=== PATIENT | female | born 1950 | race Caucasian/White ===

== ENCOUNTER 2018-06-30 10:26 | Emergency (ER) | payer OTHER, SELFPAY ==
[2018-06-30 10:36] VITALS: BP 165/78; PULSE 80; RESP 18; TEMP 36.7; O2SAT 100
--- NOTE | 2018-06-30 10:49 | PC.NURSE ---
pt states that her contact lens ripped in half when she was attempting to get it out of her eye. pt has eye redness and irritation.
--- NOTE | 2018-06-30 10:54 | ED.EYEPROB ---
HPI - Eye Problem General Chief complaint: Eye Problems Stated complaint: Torn portion of contact still in eye Time Seen by Provider: 06/30/18 10:45 Source: patient Mode of arrival: ambulatory Limitations: no limitations History of Present Illness HPI Narrative: Patient is a 68-year-old female presenting with right eye pain. She feels like her contact his stuck in her head. She used contacts yesterday only half of it came out last night she slept with his but it was painful and uncomfortable. Today she has been staying with that she still feels like something is in her eye. chief complaint: eye pain and eye redness Related Data Previous Rx's Medication Instructions Recorded ofloxacin 2 drop EYE-RIGHT Q4HRWA #10 ml 06/30/18 Allergies Allergy/AdvReac Type Severity Reaction Status Date / Time ibuprofen [IBUPROFEN] Allergy Mild HIVES Verified 06/30/18 11:17 Review of Systems Review of Systems ROS Unobtainable: All systems reviewed & are unremarkable except as noted in HPI and below Constitutional Denies chills, Denies fever(s), Denies lethargy and Denies weakness Eyes Reports as per HPI Cardiovascular Denies chest pain, Denies irregular heart rhythm, Denies lightheadedness, Denies palpitations, Denies dyspnea, Denies dyspnea on exertion and Denies orthopnea Respiratory Denies cough, Denies dyspnea, Denies dyspnea on exertion and Denies wheezing Musculoskeletal Denies back pain, Denies muscle weakness, Denies numbness and Denies tingling Integumentary/Breasts Denies pruritus, Denies erythema, Denies rash and Denies wounds Neurologic Denies numbness, Denies tingling and Denies weakness Endocrine Denies palpitations Allergic/Immunologic Denies wheezing [facility] Medical History Patient denies significant medical history (Acute) Social History Smoking Status: Never smoker substance use type: does not use Social History Smoking Status: Never smoker substance use type: does not use Exam Initial Vital Signs Initial Vital Signs: Vital Signs Temperature 98.1 F 06/30/18 10:36 Pulse Rate 80 06/30/18 10:36 Respiratory Rate 18 06/30/18 10:36 Blood Pressure 165/78 H 06/30/18 10:36 Pulse Oximetry 100 06/30/18 10:36 GENERAL: Well-appearing, well-nourished and in no acute distress. CARDIOVASCULAR: peripheral pulses in tact, cap refill <2 sec RESPIRATORY: No respiratory distress, speaks in full sentences without difficulty EXTREMITIES: Normal range of motion, no clubbing or edema. Neurovascularly intact NEUROLOGICAL: Cranial nerves II through XII grossly intact. Normal gait and speech. SKIN: Warm, dry, no petechiae, no rashes or lesions. Eyes Eyelids: eyelids normal Conjunctivae: conjunctival abnormality right conjunctival injection Sclera: sclerae normal Cornea: fluorescein used (No foreign body no dye uptake) Pupils: PERRL EOM: EOM intact bilaterally Course Orders Ordered: Discontinued Medications Proparacaine HCl (Parcaine 0.5% Ophth Unique) 1 drops EYE-RIGHT NOW ONE Stop: 06/30/18 11:01 Last Admin: 06/30/18 11:01 Dose: 1 drop Vital Signs - 8 hr 06/30/18 10:36 06/30/18 11:21 Temperature 98.1 F Pulse Rate 80 64 Respiratory Rate 18 16 Blood Pressure 165/78 H Blood Pressure [Right Arm] 155/77 H Pulse Oximetry 100 99 MDM - Eye Problem MDM Narrative Medical decision making narrative: Was irrigated and rinsed no foreign body no dye uptake. Treated empirically with antibiotics. Discharge Plan Departure Patient Disposition: Home Clinical Impression: Acute pain in right eye Discharge Date/Time: 06/30/18 11:23 Interventions: ED Discharge Assessment Last Done: 06/30/18 11:23 Instructions: DI for Eye Contusion Activity Restrictions/Additional Instructions: *You have been diagnosed with right eye irritation *What to do: At this time no contact or foreign body or abrasion is seen in the right eye. You will be antibiotic drops prophylactically DO NOT WEAR CONTACTS UNTIL EYE IS COMPLETELY HEALED *Continue to take medications as directed O'clock cyst and eyedrops 1-2 drops every 4 hr while awake for 2 days then 1-2 drops 4 times a day for 5 days *Follow up with your primary care provider in 2-3 days *Return to ER if you should have increasing a been a decreased vision, or any new, worsening or concerning symptoms Prescriptions: New ofloxacin 0.3 % drops 2 drop EYE-RIGHT Q4HRWA Qty: 10 RF: 0 Referrals: Amber Calderon PA-C [Primary Care Provider] -
[2018-06-30] MEDS: PROPARACAINE 0.5% OPHTH SOL 1 DROPS EYE-RIGHT (11:01)
[2018-06-30 11:21] VITALS: BP 155/77; PULSE 64; RESP 16; O2SAT 99
== END 2018-06-30 11:23 | disposition home or self-care (01) ==
PROVIDERS: Emergency Provider Emergency Medicine; Family Provider Physician Assistant; PCP Physician Assistant
DX: H57.11 Ocular pain, right eye (principal)
CPT/HCPCS: 99282; 99283

== ENCOUNTER → 2018-08-04 10:07 | Outpatient (CLI) | payer OTHER, SELFPAY ==
--- NOTE | 2018-08-04 | DI.MG.S_ITS ---
BILATERAL DIGITAL SCREENING MAMMOGRAM 3D/2D WITH CAD: 08/04/2018 CLINICAL: Routine screening. Comparison is made to exams dated: 06/25/2017 mammogram, 04/27/2016 mammogram, and 04/26/2015 mammogram - [facility]. The tissue of both breasts is heterogeneously dense. This may lower the sensitivity of mammography. Current study was also evaluated with a Computer Aided Detection (CAD) system. There is a mole marker on the right breast. There are mole markers on the left breast. No significant masses, calcifications, or other findings are seen in either breast. There has been no significant interval change. IMPRESSION: NEGATIVE There is no mammographic evidence of malignancy. A 1 year screening mammogram is recommended. This exam was interpreted at Station ID: [id number]. NOTE: For mammograms, a report in lay terms will be sent to the patient. Approximately 15% of breast malignancies will not be visualized mammographically. In the management of a palpable breast mass, a negative mammogram must not discourage biopsy of a clinically suspicious lesion. Electronically Signed By: Zoltan schreiber/ling:08/04/2018 19:05:44 letter sent: Normal Exam ACR BI-RADS Category 1: Negative [id number]
== END ==
PROVIDERS: Family Provider Physician Assistant; PCP Physician Assistant; Visit Provider Physician Assistant
DX: Z12.31 Encounter for screening mammogram for malignant neoplasm of breast (principal)
CPT/HCPCS: 77063; 77067

== ENCOUNTER 2018-09-21 14:13 | Outpatient (RCR) | payer OTHER, SELFPAY ==
--- NOTE | 2018-09-21 14:30 | PT.OIE ---
Current Diagnoses Pain in left wrist (09/21/18) Past Medical History (Last Updated 06/30/18 @ 10:56 by Gisel Rowe DO) Patient denies significant medical history (Acute) Provider Visit Care Team Role Provider Type Amber Calderon PA-C Primary Care Provider Advanced Greenkeeper Specialty: Internal Medicine Address: [address] [place] [address] Email: Preethi Devries MD Attending Provider Physician Specialty: Internal Medicine Address: [address] [place] [address], [id number] Email: Physical Therapy Initial Evaluation PT-OP-A Visit Information Start: 09/23/18 13:46 Freq: Status: Active Protocol: Document 09/21/18 14:30 RCC (Rec: 09/23/18 14:10 RCC [email or web address]) Out-Patient Physical Therapy Visit Information Visit Information Visit Type Initial Evaluation Visit Start Time 14:30 Visit Stop Time 15:10 Total Visit Minutes 40 Visit Number 1 Number of [place] Visits 0 Evaluation Information Evaluation Date 09/21/18 PT-OP-B Current Condition Start: 09/23/18 13:46 Freq: Status: Active Protocol: Document 09/21/18 14:30 RCC (Rec: 09/23/18 14:10 RCC [email or web address]) Current Condition History of Current Condition Onset Date 1 month Current Complaints L wrist pain History of Current Condition Pt is a 68 y/o female presenting to physical therapy with a c/o L wrist pain, onset 1 month ago with no know FRANCISCA. Pt admits that her hand/ wrist pain is decreasing since it took 2-3 weeks to get an appointment. Pt admits that she still is having a hard time with opening up jars and has dropped some objects when using her L hand due to weakness. No imaging done, she is not wearing a splint or brace. She is L hand dominant. Pain located on dorsum region of L wrist, denies any numbness/tingling or shooting pain. 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 Personal Factors Other Personal Factors That May Effect OA- worst in fingers Therapy/Recovery PT-OP-C Subjective Start: 09/23/18 13:46 Freq: Status: Active Protocol: Document 09/21/18 14:30 RCC (Rec: 09/23/18 14:10 RCC [email or web address]) OP-PT Subjective Patient Comments Patient Reported Progress Improving OP-PT Pain Assessment Location L wrist Intensity 2 Scale Used Numeric (1 - 10) Description Aching Frequency Occasional PT-OP-F Manual Assessment Start: 09/23/18 13:46 Freq: Status: Active Protocol: Document 09/21/18 14:30 RCC (Rec: 09/23/18 14:10 RCC [email or web address]) Manual Assessments Soft Tissue Assessment Soft Tissue Mobility Assessment no tenderness to soft tissue on the L dorsal or volar hand/ wrist Joint Mobility Assessment Joint Mobility Assessment mild hypomobility bilateral carpometacarpal joints PT-OP-H Neuro Start: 09/23/18 13:46 Freq: Status: Active Protocol: Document 09/21/18 14:30 RCC (Rec: 09/23/18 14:10 RCC [email or web address]) Sensation Evaluation Gross Sensation Gross Sensation WNL Deep Tendon Reflex & Clonus Assessment Deep Tendon Reflex Bilateral Brachioradialis Deep Tendon Reflex 2+ Normal Bilateral Tricep Deep Tendon Reflex 2+ Normal Bilateral Bicep Deep Tendon Reflex 2+ Normal PT-OP-K Range of Motion Start: 09/23/18 13:46 Freq: Status: Active Protocol: Document 09/21/18 14:30 RCC (Rec: 09/23/18 14:10 RCC [email or web address]) Wrist Goniometric Range of Motion Wrist Right Wrist ROM WFL Yes Left Wrist ROM WFL Yes PT-OP-L Special Tests Start: 09/23/18 13:46 Freq: Status: Active Protocol: Document 09/21/18 14:30 RCC (Rec: 09/23/18 14:10 RCC [email or web address]) Special Tests Cervical Spine Special Tests Spurling's Test Test Results negative Foraminal Compression Test Results negative Wrist/Hand Special Tests Huyen's Test Results negative PT-OP-M Strength Start: 09/23/18 13:46 Freq: Status: Active Protocol: Document 09/21/18 14:30 RCC (Rec: 09/23/18 14:10 RCC [email or web address]) Shoulder Strength Shoulder Manual Muscle Testing Right Flexion 5 Normal Abduction (C5) 5 Normal External Rotation 5 Normal Internal Rotation 5 Normal Left Flexion 5 Normal Abduction (C5) 5 Normal External Rotation 5 Normal Internal Rotation 5 Normal Elbow/Forearm Strength Elbow and Forearm Manual Muscle Testing Right Flexion (C6) 5 Normal Extension (C7) 5 Normal Left Flexion (C6) 5 Normal Extension (C7) 5 Normal Wrist Strength Wrist Manual Muscle Testing Right Flexion (C7) 5 Normal Extension (C6) 5 Normal Ulnar Deviation 5 Normal Radial Deviation 5 Normal Left Flexion (C7) 5 Normal Extension (C6) 5 Normal Ulnar Deviation 5 Normal Radial Deviation 5 Normal Finger/Thumb Strength Finger Manual Muscle Testing Right Thumb Flexion (fingers C8) 5 Normal Extension (thumb C8) 5 Normal Abduction (fingers T1) 5 Normal Left Thumb Flexion (fingers C8) 4+ Good+ Extension (thumb C8) 4 Good Abduction (fingers T1) 4+ Good+ Hand Induction Heat Treater/Pinch Strength Hand Dominance Hand Dominance Left Hand Strength Right Comments 42 lbs arm at side and elbow flex 90 deg 50 lbs 90 deg shoulder flexion , elbow straight Left Comments 34 lbs arm at side and elbow flex 90 deg 34 lbs 90 deg shoulder flexion , elbow straight PT-OP-Q Treatments Start: 09/23/18 13:46 Freq: Status: Active Protocol: Document 09/21/18 14:30 RCC (Rec: 09/23/18 14:10 RCC [email or web address]) Therapeutic Exercises Sitting Exercises gripping with theraputty Side left Resistance yellow PT-OP-T Assessment and Plan Start: 09/23/18 13:46 Freq: Status: Active Protocol: Document 09/21/18 14:30 RCC (Rec: 09/23/18 14:10 RCC [email or web address]) Physical Therapy Assessment Rehab Potential Rehabilitation Potential Good Evaluation Complexity Number of Personal Factors/Comorbidities 1-2 Number of Body Systems Impaired 1-2 Clinical Presentation at Evaluation Stable Impairments Impairments Functional Activities Pain Strength Goals HEP Impairment no established HEP Creative Recruiter Goal (LTG) Pt will be indep with home exercise program prior to d/c. LTG Duration 6 weeks pain Impairment L wrist pain Creative Recruiter Goal (LTG) pt will report 0/10 L wrist pain with her daily home chores including doing the dishes, prior to d/c LTG Duration 6 weeks L interventional technologist strength Impairment L interventional technologist weakness Short Term Goal (STG) Pt will have interventional technologist strength of 40 lbs or greater with both conditions of interventional technologist testing. STG Duration 3 weeks Halfway Goal (LTG) Pt will have interventional technologist strength equal to the non-affected R side prior to d/c to prevent the pt from dropping moderate to heavy objects at home. LTG Duration 6 weeks Assessment Summary Assessment Pt presents with negative testing for de Quervain's tenosynovitis, as well as negative testing for referred pain from cervical spine. Pt does have bilateral hypomobility of the carpometacarpal joints, but possibly related to OA since it is present bilaterally. Pt does have L hand interventional technologist weakness when compared to the R, even though the MMT appears to be WNL bilaterally, potentially from disuse due to pain. Initial injury potentially tendinitis which has decreased in intensity but left residual hand/interventional technologist weakness. Pt will benefit from skilled physical therapy to progress her strength of the L hand/ wrist to return to prior functional level of gripping, handling, and manipulating objects without issues, as well as assistance with decrease in pain. Physical Therapy Plan Frequency and Duration Frequency of Treatment 1x/Week Duration of Treatment 6 weeks Plan of Care Start Date 09/21/18 Plan of Care End Date 11/02/18 Therapeutic Interventions Therapeutic Interventions Home Exercise Program Joint Mobilizations Manual Therapy Neuromuscular Re-education Orthotic/Prosthetic Management Patient/Caregiver Education Self-Care/Home Management Soft Tissue Mobilization Taping Therapeutic Activities Therapeutic Exercises Modalities Cold Pack/Ice Massage Hot Packs Iontophoresis Paraffin Bath Ultrasound Next Visit Focus/Plan Next Note Type Treatment Note Next Visit Plan re-assess interventional technologist strength and pain; gripping activities in various positions, manual therapy for CMC joints as needed.
--- NOTE | 2018-09-21 14:30 | PT.OPPOC ---
Current Diagnoses Pain in left wrist (09/21/18) Provider Visit Care Team Role Provider Type Amber Calderon PA-C Primary Care Provider Advanced Foreclosure Specialist Specialty: Internal Medicine Address: [address] [place] [address], [id number] Email: Preethi Devries MD Attending Provider Physician Specialty: Internal Medicine Address: [address] [place] [address], [id number] Email: Plan Of Care PT-OP-T Assessment and Plan Start: 09/23/18 13:46 Freq: Status: Active Protocol: Document 09/21/18 14:30 RCC (Rec: 09/23/18 14:10 RCC [email or web address]) Physical Therapy Assessment Rehab Potential Rehabilitation Potential Good Evaluation Complexity Number of Personal Factors/Comorbidities 1-2 Number of Body Systems Impaired 1-2 Clinical Presentation at Evaluation Stable Impairments Impairments Functional Activities Pain Strength Goals HEP Impairment no established HEP Oil Fire Specialist Goal (LTG) Pt will be indep with home exercise program prior to d/c. LTG Duration 6 weeks pain Impairment L wrist pain Jail Goal (LTG) pt will report 0/10 L wrist pain with her daily home chores including doing the dishes, prior to d/c LTG Duration 6 weeks L halver machine operator strength Impairment L halver machine operator weakness Short Term Goal (STG) Pt will have halver machine operator strength of 40 lbs or greater with both conditions of halver machine operator testing. STG Duration 3 weeks Jail Goal (LTG) Pt will have halver machine operator strength equal to the non-affected R side prior to d/c to prevent the pt from dropping moderate to heavy objects at home. LTG Duration 6 weeks Assessment Summary Assessment Pt presents with negative testing for de Quervain's tenosynovitis, as well as negative testing for referred pain from cervical spine. Pt does have bilateral hypomobility of the carpometacarpal joints, but possibly related to OA since it is present bilaterally. Pt does have L hand halver machine operator weakness when compared to the R, even though the MMT appears to be WNL bilaterally, potentially from disuse due to pain. Initial injury potentially tendinitis which has decreased in intensity but left residual hand/halver machine operator weakness. Pt will benefit from skilled physical therapy to progress her strength of the L hand/ wrist to return to prior functional level of gripping, handling, and manipulating objects without issues, as well as assistance with decrease in pain. Physical Therapy Plan Frequency and Duration Frequency of Treatment 1x/Week Duration of Treatment 6 weeks Plan of Care Start Date 09/21/18 Plan of Care End Date 11/02/18 Therapeutic Interventions Therapeutic Interventions Home Exercise Program Joint Mobilizations Manual Therapy Neuromuscular Re-education Orthotic/Prosthetic Management Patient/Caregiver Education Self-Care/Home Management Soft Tissue Mobilization Taping Therapeutic Activities Therapeutic Exercises Modalities Cold Pack/Ice Massage Hot Packs Iontophoresis Paraffin Bath Ultrasound Next Visit Focus/Plan Next Note Type Treatment Note Next Visit Plan re-assess halver machine operator strength and pain; gripping activities in various positions, manual therapy for CMC joints as needed. Plan of Care Dates Plan of Care Start Date 09/21/18 Plan of Care End Date 11/02/18 Please Sign and Return: I have reviewed this Plan of Care and certify that the skilled therapy services above are required to meet the patient?s needs. Physician Signature Date Printed Name and Credentials Clinical Instructor Signature Printed Name and Credentials
--- NOTE | 2018-10-18 13:42 | PT.OPDS ---
Current Diagnoses Pain in left wrist (09/21/18) Provider Visit Care Team Role Provider Type Amber Calderon PA-C Primary Care Provider Advanced Mechanical Integrity Engineer Specialty: Internal Medicine Address: [address] [place] [address], [id number] Email: Preethi Devries MD Attending Provider Physician Specialty: Internal Medicine Address: [address] [place] [address], [facility] Email: Visit Number Visit Number 1 Discharge Summary PT-OP-B Current Condition Start: 09/23/18 13:46 Freq: Status: Active Protocol: Document 09/21/18 14:30 RCC (Rec: 09/23/18 14:10 RCC [email or web address]) Current Condition History of Current Condition Onset Date 1 month Current Complaints L wrist pain History of Current Condition Pt is a 68 y/o female presenting to physical therapy with a c/o L wrist pain, onset 1 month ago with no know FRANCISCA. Pt admits that her hand/ wrist pain is decreasing since it took 2-3 weeks to get an appointment. Pt admits that she still is having a hard time with opening up jars and has dropped some objects when using her L hand due to weakness. No imaging done, she is not wearing a splint or brace. She is L hand dominant. Pain located on dorsum region of L wrist, denies any numbness/tingling or shooting pain. 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 Personal Factors Other Personal Factors That May Effect OA- worst in fingers Therapy/Recovery PT-OP-C Subjective Start: 09/23/18 13:46 Freq: Status: Active Protocol: Document 10/18/18 13:40 IJS (Rec: 10/18/18 13:42 IJS [email or web address]) OP-PT Subjective Patient Comments Patient Comments Patient was seen for evaluation only on September 21, 2018. She has since called and asked to be discharged. PT-OP-F Manual Assessment Start: 09/23/18 13:46 Freq: Status: Active Protocol: Document 09/21/18 14:30 RCC (Rec: 09/23/18 14:10 RCC [email or web address]) Manual Assessments Soft Tissue Assessment Soft Tissue Mobility Assessment no tenderness to soft tissue on the L dorsal or volar hand/ wrist Joint Mobility Assessment Joint Mobility Assessment mild hypomobility bilateral carpometacarpal joints PT-OP-H Neuro Start: 09/23/18 13:46 Freq: Status: Active Protocol: Document 09/21/18 14:30 RCC (Rec: 09/23/18 14:10 RCC [email or web address]) Sensation Evaluation Gross Sensation Gross Sensation WNL Deep Tendon Reflex & Clonus Assessment Deep Tendon Reflex Bilateral Brachioradialis Deep Tendon Reflex 2+ Normal Bilateral Tricep Deep Tendon Reflex 2+ Normal Bilateral Bicep Deep Tendon Reflex 2+ Normal PT-OP-K Range of Motion Start: 09/23/18 13:46 Freq: Status: Active Protocol: Document 09/21/18 14:30 RCC (Rec: 09/23/18 14:10 RCC [email or web address]) Wrist Goniometric Range of Motion Wrist Right Wrist ROM WFL Yes Left Wrist ROM WFL Yes PT-OP-L Special Tests Start: 09/23/18 13:46 Freq: Status: Active Protocol: Document 09/21/18 14:30 RCC (Rec: 09/23/18 14:10 RCC [email or web address]) Special Tests Cervical Spine Special Tests Spurling's Test Test Results negative Foraminal Compression Test Results negative Wrist/Hand Special Tests Huyen's Test Results negative PT-OP-M Strength Start: 09/23/18 13:46 Freq: Status: Active Protocol: Document 09/21/18 14:30 RCC (Rec: 09/23/18 14:10 RCC [email or web address]) Shoulder Strength Shoulder Manual Muscle Testing Right Flexion 5 Normal Abduction (C5) 5 Normal External Rotation 5 Normal Internal Rotation 5 Normal Left Flexion 5 Normal Abduction (C5) 5 Normal External Rotation 5 Normal Internal Rotation 5 Normal Elbow/Forearm Strength Elbow and Forearm Manual Muscle Testing Right Flexion (C6) 5 Normal Extension (C7) 5 Normal Left Flexion (C6) 5 Normal Extension (C7) 5 Normal Wrist Strength Wrist Manual Muscle Testing Right Flexion (C7) 5 Normal Extension (C6) 5 Normal Ulnar Deviation 5 Normal Radial Deviation 5 Normal Left Flexion (C7) 5 Normal Extension (C6) 5 Normal Ulnar Deviation 5 Normal Radial Deviation 5 Normal Finger/Thumb Strength Finger Manual Muscle Testing Right Thumb Flexion (fingers C8) 5 Normal Extension (thumb C8) 5 Normal Abduction (fingers T1) 5 Normal Left Thumb Flexion (fingers C8) 4+ Good+ Extension (thumb C8) 4 Good Abduction (fingers T1) 4+ Good+ Hand Pastry Mixer/Pinch Strength Hand Dominance Hand Dominance Left Hand Strength Right Comments 42 lbs arm at side and elbow flex 90 deg 50 lbs 90 deg shoulder flexion , elbow straight Left Comments 34 lbs arm at side and elbow flex 90 deg 34 lbs 90 deg shoulder flexion , elbow straight PT-OP-T Assessment and Plan Start: 09/23/18 13:46 Freq: Status: Active Protocol: Document 10/18/18 13:40 IJS (Rec: 10/18/18 13:42 IJS [email or web address]) Physical Therapy Assessment Assessment Summary Assessment Pt. being discharged from PT. Physical Therapy Plan Discharge Physical Therapy Discharge Reasons Patient Request Next Visit Focus/Plan Next Note Type Discharge Summary
== END 2018-11-04 14:59 | disposition home or self-care (01) ==
LOC: PHYS 14:13
PROVIDERS: PCP Physician Assistant; Visit Provider Internal Medicine
DX: M25.532 Pain in left wrist (principal)
CPT/HCPCS: 97161

== ENCOUNTER → 2019-06-08 15:44 | Outpatient (CLI) | payer MEDICARE, SELFPAY ==
--- NOTE | 2019-06-08 15:54 | DI.RAD.S_ITS ---
PROCEDURE: XR THORACIC SPINE 3V INDICATIONS: BACK PAIN TECHNIQUE: 3 views of the thoracic spine were acquired. COMPARISON: None. FINDINGS: Bones: No fractures or dislocations. No suspicious bony lesions. Levocurvature of the lumbar spine centered at L3-L4. Multilevel degenerative endplate sclerosis and spurring. Diffuse facet arthropathy. Diffuse cervical spondylosis and facet arthropathy also noted Soft tissues: No paravertebral stripe thickening. IMPRESSION: Diffuse discogenic changes. No fracture identified. If the patient's pain or other symptoms persist, consider further evaluation with MRI Levocurvature as above Dictated by: Gregg Gomes M.D. on 06/08/2019 at 16:44 Approved by: Gregg Gomes M.D. on 06/08/2019 at 16:45
--- NOTE | 2019-06-08 15:54 | DI.RAD.S_ITS ---
PROCEDURE: XR LUMBAR SPINE 2-3V INDICATIONS: BACK PAIN TECHNIQUE: 3 views of the lumbar spine were acquired. COMPARISON: None. FINDINGS: Bones: No fracture or focal osseous destruction. Multilevel degenerative endplate sclerosis and spurring. Diffuse facet arthropathy. Straightening of the normal lordotic curvature. Trace retrolisthesis of L2 on L3-L3 on L4. There is levoscoliosis centered at L3-L4. Sacroiliac joints grossly unremarkable. Severe diffuse narrowing of the lumbar disc spaces. Soft tissues: Overlying bowel gas pattern is normal. No suspicious soft tissue calcifications. IMPRESSION: Multilevel severe lumbar spondylosis and facet arthropathy. Levoscoliosis centered at L3-L4 Dictated by: Gregg Gomes M.D. on 06/08/2019 at 16:42 Approved by: Gregg Gomes M.D. on 06/08/2019 at 16:43
== END ==
PROVIDERS: PCP Physician Assistant; Referring Provider Physician Assistant; Visit Provider Physician Assistant
DX: M54.6 Pain in thoracic spine (principal); M54.5 Low back pain; M47.816 Spondylosis without myelopathy or radiculopathy, lumbar region
CPT/HCPCS: 72072; 72100

== ENCOUNTER → 2019-07-10 10:56 | Outpatient (CLI) | payer MEDICARE, SELFPAY ==
--- NOTE | 2019-07-10 | DI.MRI.S_ITS ---
PROCEDURE: MR THORACIC SPINE WO CON INDICATIONS: PAIN IN THORACIC AND LOW BACK TECHNIQUE: Noncontrast sagittal T1 spine echo and T2 fast spin echo, sagittal STIR, axial T1 and T2 fast spin echo through the thoracic spine. COMPARISON: [facility], MR, MR LUMBAR SPINE WO CON, 07/10/2019, 11:28. [facility], CR, XR LUMBAR SPINE 2-3V, 06/08/2019, 15:55. [facility], CR, XR THORACIC SPINE 3V, 06/08/2019, 15:55. FINDINGS: Image quality: Excellent. Alignment and Curvature: There is normal bony alignment. Bone Marrow: Marrow is of normal overall signal. Scattered foci are seen, which are hyperintense on T1-weighted and T2-weighted imaging, which are most consistent with benign vertebral body hemangiomas. No acute vertebral body compression fractures. Spinal Cord: Visualized spinal cord is normal in size and signal. Paraspinous Soft Tissues: No paravertebral masses. Miscellaneous: At the T6-T7 level, there is mild loss of disc height seen. A minimal central disc bulge is seen, without significant neural foraminal or central canal narrowing. At T7-T8, The disc height is relatively well-preserved. There is a mild central disc protrusion seen, as on series 7 image 25. Minimal central canal narrowing is seen, with associated mass effect upon the ventral spinal cord. No neural foraminal narrowing is seen. Mild loss of disc height is seen at the T8-T9 level. There is a central disc extrusion seen, with superior migration of disc material. Mild central canal narrowing is seen, mass effect upon the ventral spinal cord. No significant neural foraminal narrowing is seen. Mild loss of disc height is seen at T9-T10. There is a central/right disc protrusion seen, with minimal central canal narrowing. There is moderate right-sided and no significant left-sided neural foraminal narrowing seen. IMPRESSION: Mid-to lower thoracic spine degenerative changes are seen. Dictated by: Catalino Dixon M.D. on 07/10/2019 at 11:06 Approved by: Catalino Dixon M.D. on 07/10/2019 at 11:10
--- NOTE | 2019-07-10 | DI.MRI.S_ITS ---
PROCEDURE: MR LUMBAR SPINE WO CON INDICATIONS: PAIN IN THORACIC AND LOW BACK TECHNIQUE: Noncontrast sagittal T1 spin echo and T2 fast echo, sagittal STIR, axial T1 and T2 fast spin echo through the lumbar spine. In cases with scoliosis, additional coronal T2 fast spin echo may be performed. COMPARISON: [facility], MR, MR THORACIC SPINE WO CON, 07/10/2019, 11:06. [facility], CR, XR LUMBAR SPINE 2-3V, 06/08/2019, 15:55. [facility], CR, XR THORACIC SPINE 3V, 06/08/2019, 15:55. FINDINGS: Image quality: Excellent. Alignment and Curvature: There is minimal retrolisthesis seen at L2-L3 and at L3-L4. Mild levoconvex scoliotic curvature is noted. Bone Marrow: Marrow is of normal overall signal. Scattered foci are seen, which are hyperintense on T1-weighted and T2-weighted imaging, which are most consistent with benign vertebral body hemangiomas. No acute vertebral body compression fractures. Spinal Cord: Conus medullaris terminates at the T12-L1 level. Visualized cord demonstrates normal signal and size. Paraspinous Soft Tissues: No paravertebral masses. T12-L1: Moderate loss of disc height is seen. Loss of disc signal is seen. Moderate disc bulge is seen, which is eccentric to the right. There is a central/right disc protrusion seen, as on series 6 image 9. There is mild right-sided and no left-sided neural foraminal narrowing seen. Mild central canal narrowing is seen. L1-L2: At least moderate loss of disc height and disc signal can be seen. Moderate disc bulge is seen, which is eccentric the left. There is at least moderate bilateral neural foraminal narrowing seen. No significant central canal narrowing is seen. L2-L3: At least moderate loss of disc height and disc signal can be seen. Moderate generalized disc bulge is seen. Mild facet joint hypertrophy is seen. Moderate bilateral neural foraminal narrowing is seen, right worse than left. Mild to moderate central canal narrowing is seen. L3-L4: At least moderate loss of disc height and disc signal can be seen on the right side. Moderate disc bulge is seen at this level. Mild to moderate facet hypertrophy is seen. There is at least moderate bilateral neural foraminal narrowing seen. Moderate to severe central canal narrowing is seen, as on series 6 image 22. L4-L5: At least moderate loss of disc height and disc signal can be seen. Moderate disc bulge is seen, which is eccentric to the left. Moderate facet joint hypertrophy is seen. Uhuo-[id number] bilateral neural foraminal narrowing is seen. Moderate central canal narrowing is seen. L5-S1: Mild to moderate loss of disc height and disc signal can be seen. Moderate disc bulge is seen, which is eccentric to the left. Moderate facet joint hypertrophy is seen. There is moderate to severe left-sided neural foraminal narrowing seen, with associated compression upon the exiting left L5 nerve root. No significant right-sided neural foraminal narrowing is seen. No significant central canal narrowing is seen. 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 IMPRESSION: Multiple levels of lumbar spine degenerative change can be seen, which are overall most prominent at the L3-L4 level. Levoconvex lumbar scoliotic curvature is seen. Dictated by: Catalino Dixon M.D. on 07/10/2019 at 11:11 Approved by: Catalino Dixon M.D. on 07/10/2019 at 11:16
== END ==
PROVIDERS: PCP Physician Assistant; Referring Provider Physician Assistant; Visit Provider Physician Assistant
DX: M54.6 Pain in thoracic spine (principal); M54.5 Low back pain; M47.814 Spondylosis without myelopathy or radiculopathy, thoracic region; M47.816 Spondylosis without myelopathy or radiculopathy, lumbar region; M41.86 Other forms of scoliosis, lumbar region
CPT/HCPCS: 72146; 72148

== ENCOUNTER → 2019-10-16 11:37 | Outpatient (CLI) | payer MEDICARE, SELFPAY ==
--- NOTE | 2019-10-16 11:52 | DI.MG.S_ITS ---
Patient Name: CUBA GUADALUPE date: 1950 Sex: F Attending Physician: Yumiko Indications: Date: 10/16/2019 11:46 At the request of: ROSA RAJAN Procedure: MM screening mammo BI BILATERAL DIGITAL SCREENING MAMMOGRAM 3D/2D WITH CAD: 10/16/2019 CLINICAL: Routine screening. Comparison is made to exams dated: 08/04/2018 mammogram, 06/25/2017 mammogram, and 04/27/2016 mammogram - [facility]. The tissue of both breasts is heterogeneously dense. This may lower the sensitivity of mammography. Current study was also evaluated with a Computer Aided Detection (CAD) system. There is a mole marker on the right breast. There are mole markers on the left breast. No significant masses, calcifications, or other findings are seen in either breast. There has been no significant interval change. IMPRESSION: NEGATIVE There is no mammographic evidence of malignancy. A 1 year screening mammogram is recommended. This exam was interpreted at Station ID: [id number]. NOTE: For mammograms, a report in lay terms will be sent to the patient. Approximately 15% of breast malignancies will not be visualized mammographically. In the management of a palpable breast mass, a negative mammogram must not discourage biopsy of a clinically suspicious lesion. Electronically Signed By: Abe Pink M.D., jr/ling:10/16/2019 12:15:19 letter sent: Normal Exam ACR BI-RADS Category 1: Negative 3341F
== END ==
PROVIDERS: PCP Physician Assistant; Referring Provider Physician Assistant; Visit Provider Physician Assistant
DX: Z12.31 Encounter for screening mammogram for malignant neoplasm of breast (principal)
CPT/HCPCS: 77063; 77067

== ENCOUNTER → 2020-07-22 15:59 | Outpatient (CLI) | payer OTHER, SELFPAY ==
--- NOTE | 2020-07-22 16:02 | DI.RAD.S_ITS ---
PROCEDURE: XR WRIST RT 2V INDICATIONS: POLYARTHRITIS TECHNIQUE: 2 views of the wrist were acquired. COMPARISON: [facility], CR, XR WRIST LT 2V, 07/22/2020, 16:08. 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 No acute fracture. Ulnar minus variance is present. There is mild 1st CMC and triscaphe joint degeneration. Presumed degenerative cystic change involving the lunate. Chronic appearing corticated ossicle projects adjacent to the ulnar styloid. Soft tissues: No suspicious soft tissue calcifications. IMPRESSION: Degenerative changes as above. If the patient's pain or other symptoms persist, consider further evaluation with MRI Dictated by: Gregg Gomes M.D. on 07/22/2020 at 17:10 Approved by: Gregg Gomes M.D. on 07/22/2020 at 17:13
--- NOTE | 2020-07-22 16:02 | DI.RAD.S_ITS ---
PROCEDURE: XR HAND RT 2V INDICATIONS: POLYARTHRITIS TECHNIQUE: 2 views of the hand(s) acquired. COMPARISON: [facility], CR, XR HAND LT 2V, 07/22/2020, 16:08. FINDINGS: Bones: Diffuse interphalangeal joint degeneration. There is severe 3rd MCP degenerative joint disease with vlcg-cl-[id number] appearance. Chronic ossicle projects adjacent to the ulnar styloid. There is ulnar minus variance incidentally noted. Possible marginal lucencies involving the 3rd MCP joint raising the possibility of small erosions. Soft tissues: Multiple dystrophic calcifications seen at the DIP joints of the middle and ring finger. 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 Additional scattered degenerative changes as above. Dictated by: Gregg Gomes M.D. on 07/22/2020 at 17:08 Approved by: Gregg Goems M.D. on 07/22/2020 at 17:10
--- NOTE | 2020-07-22 16:02 | DI.RAD.S_ITS ---
PROCEDURE: XR WRIST LT 2V INDICATIONS: POLYARTHRITIS TECHNIQUE: 2 views of the wrist were acquired. COMPARISON: None. FINDINGS: Bones: No fracture. There is 1st CMC, triscaphe and radiocarpal joint degeneration. There is possible early scapholunate advanced collapse and questionable widening of the scapholunate interval. Subchondral degenerative cystic change and sclerosis present at the radiocarpal joint. Distal radioulnar joint degeneration. Ulnar minus variance incidentally noted. Soft tissues: No suspicious soft tissue calcifications. IMPRESSION: Radiocarpal joint degeneration with possible early scapholunate advanced collapse. Dictated by: Gregg Gomes M.D. on 07/22/2020 at 17:05 Approved by: Gregg Gomes M.D. on 07/22/2020 at 17:07
--- NOTE | 2020-07-22 16:03 | DI.RAD.S_ITS ---
PROCEDURE: XR HAND LT 2V INDICATIONS: POLYARTHRITIS TECHNIQUE: 2 views of the hand(s) acquired. COMPARISON: None. FINDINGS: Bones: No fracture identified. There is diffuse interphalangeal, 1st CMC and triscaphe joint degeneration. Ulnar minus variance incidentally noted and there is distal radioulnar joint degeneration. Marginal lucencies noted at the index and middle finger and little finger DIP joints. Subchondral lucencies also noted involving the lunate and distal radius, possibly cysts versus erosions. There is narrowing of the radiocarpal joint space. There is suggestion of early scapholunate advanced collapse. Soft tissues: No suspicious soft tissue calcifications. IMPRESSION: Diffuse left hand osteoarthritis. Marginal lucencies involving the index, middle and little finger DIP joints, raising possibility of small erosions. Radiocarpal joint degeneration, with possible early scapholunate advanced collapse. Dictated by: Gregg Gomes M.D. on 07/22/2020 at 16:57 Approved by: Gregg Gomes M.D. on 07/22/2020 at 17:05
[2020-07-22 17:03] LABS: Add Manual Diff / Slide Review NO; Basophils Absolute Auto 0 /uL (0-100); Basophils Percent Auto 0.6 % (0-2); Eosinophils Absolute Auto 100 /uL (0-450); Eosinophils Percent Auto 1.7 % (2-4); Hemoglobin 9.4 g/dL (12.0-16.0); Lymphocytes Absolute Auto 1400 /uL (1100-4500); Lymphocytes Percent Auto 22.3 % (25-40); Mean Corpuscular HGB Conc 32.4 % (30-36); Mean Corpuscular Hemoglobin 25.3 PG (26-34); Mean Corpuscular Volume 78.2 fL (80-100); Monocytes Absolute Auto 400 /uL (0-900); Monocytes Percent Auto 6.9 % (3-14); Neutrophils Absolute Auto 4200 /uL (1500-7000); Neutrophils Percent Auto 68.5 % (50-75); Platelet Count 258 X10^3/uL (150-400); Red Blood Cell Count 3.71 X10^6/uL (4.0-5.2); Red Cell Distribution Width 16.3 % (11.6-14.8); White Blood Cell Count 6.1 X10^3/uL (4.5-11.0)
[2020-07-22 17:46] LABS: Uric Acid 5.2 mg/dL (2.5-6.2)
[2020-07-22 18:25] LABS: Erythrocyte Sedimentation Rate 17 MM/HR (0-20)
[2020-07-23 19:54] LABS: Rheumatoid Factor 9.5 IU/mL (<12.0)
== END ==
PROVIDERS: PCP Physician Assistant; Referring Provider Internal Medicine; Visit Provider Internal Medicine
DX: M19.042 Primary osteoarthritis, left hand (principal); M19.032 Primary osteoarthritis, left wrist
CPT/HCPCS: 36415; 73100; 73120; 84550; 85025; 85651; 86430

== ENCOUNTER → 2020-07-25 14:21 | Outpatient (CLI) | payer OTHER, SELFPAY ==
[2020-07-25 16:47] LABS: HEMOLYSIS < 15 (0-50); Iron 11 ug/dL (37-170)
[2020-07-25 16:55] LABS: Ferritin 6 ng/mL (11-264)
[2020-07-25 17:00] LABS: Percent Iron Saturation 2 % (15-50); Total Iron Binding Capacity 487 ug/dL (265-497); Transferrin 411 mg/dL (206-381)
== END ==
PROVIDERS: PCP Physician Assistant; Referring Provider Physician Assistant; Visit Provider Physician Assistant
DX: D50.9 Iron deficiency anemia, unspecified (principal)
CPT/HCPCS: 36415; 82728; 83540; 83550

== ENCOUNTER → 2020-08-19 13:03 | Outpatient (CLI) | payer OTHER, SELFPAY | PROVIDERS: PCP Physician Assistant; Referring Provider Physician Assistant; Visit Provider Physician Assistant | DX: Z78.0 Asymptomatic menopausal state (principal); M85.851 Other specified disorders of bone density and structure, right thigh; Z82.62 Family history of osteoporosis; Z87.891 Personal history of nicotine dependence | CPT/HCPCS: 77080 ==

== ENCOUNTER → 2020-10-17 11:03 | Outpatient (CLI) | payer MEDICARE, SELFPAY ==
--- NOTE | 2020-10-17 11:04 | DI.MG.S_ITS ---
BILATERAL DIGITAL SCREENING MAMMOGRAM 3D/2D WITH CAD: 10/17/2020 CLINICAL: Routine screening. Comparison is made to exams dated: 10/16/2019 mammogram, 08/04/2018 mammogram, and 06/25/2017 mammogram - [facility]. The tissue of both breasts is heterogeneously dense. This may lower the sensitivity of mammography. Current study was also evaluated with a Computer Aided Detection (CAD) system. No significant masses, calcifications, or other findings are seen in either breast. There has been no significant interval change. IMPRESSION: NEGATIVE There is no mammographic evidence of malignancy. A 1 year screening mammogram is recommended. This exam was interpreted at Station ID: [id number]. NOTE: For mammograms, a report in lay terms will be sent to the patient. Approximately 15% of breast malignancies will not be visualized mammographically. In the management of a palpable breast mass, a negative mammogram must not discourage biopsy of a clinically suspicious lesion. Electronically Signed By: Teodoro gonzalez/ling:10/17/2020 12:50:18 letter sent: Normal Exam ACR BI-RADS Category 1: Negative 3341F
== END ==
PROVIDERS: PCP Physician Assistant; Referring Provider Physician Assistant; Visit Provider Physician Assistant
DX: Z12.31 Encounter for screening mammogram for malignant neoplasm of breast (principal)
CPT/HCPCS: 77063; 77067

== ENCOUNTER → 2020-11-18 10:11 | Outpatient (CLI) | payer OTHER, SELFPAY ==
--- NOTE | 2020-11-18 | DI.RAD.S_ITS ---
PROCEDURE: XR SHOULDER LT MIN 2V INDICATIONS: LEFT SHOULDER PAIN TECHNIQUE: 3 views of the shoulder were acquired. COMPARISON: None. FINDINGS: Bones: No fractures or dislocations. There are calcifications above the glenohumeral joint likely tendinous calcifications. No suspicious bony lesions. Visualized ribs appear intact. Soft tissues: No suspicious soft tissue calcifications. IMPRESSION: 1. No acute abnormality. 2. Joint space calcifications possibly calcific tendinosis. Dictated by: Isidoro Rosales M.D. on 11/18/2020 at 13:37 Approved by: Isidoro Rosales M.D. on 11/18/2020 at 13:40
== END ==
PROVIDERS: PCP Physician Assistant; Referring Provider Physician Assistant; Visit Provider Physician Assistant
DX: M25.512 Pain in left shoulder (principal)
CPT/HCPCS: 73030

== ENCOUNTER → 2021-03-03 11:07 | Outpatient (CLI) | payer OTHER, SELFPAY ==
--- NOTE | 2021-03-03 | DI.MRI.S_ITS ---
PROCEDURE: MR HAND LT WO/W CON INDICATIONS: Arthropathy, unspecified TECHNIQUE: Coronal and axial T1 spin echo and T2 fast spin echo with fat saturation. Post-contrast coronal and axial T1 spin echo with fat saturation images through the left hand and wrist. COMPARISON: [facility], CR, XR HAND LT 2V, 07/22/2020, 16:08. FINDINGS: Image quality: Excellent. Bones and cartilage: There is erosion/blunting of the ulnar styloid. Additional marrow signal changes involving the distal capitate and hamate, proximal lunate, distal radial articular surfaces are noted in keeping with erosions demonstrating enhancement on the postcontrast pulse sequences. There is also marginal marrow signal changes at the DIP joint of the middle finger, with associated enhancement suggesting erosions. 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 Synovium: Ill-defined synovial enhancement seen at the 5th MCP joint. There is diffuse prominent carpal synovial enhancement and thickening. Soft tissues: There is mild ring and little finger flexor tenosynovitis. Additional T2 hyperintensities seen within the carpal tunnel surrounding the flexor tendons raising possibility of carpal tunnel syndrome although only in the appropriate clinical context. IMPRESSION: Numerous erosions involving the carpus as well as at the DIP joint of the middle finger. There is also erosion and blunting of the ulnar styloid. Diffuse carpal and 5th MCP joint synovitis. Mild ring and little finger flexor tenosynovitis. Lunate osteitis Dictated by: Gregg Gomes M.D. on 03/03/2021 at 12:11 Approved by: Gregg Gomes M.D. on 03/03/2021 at 12:24
== END ==
PROVIDERS: PCP Physician Assistant; Referring Provider Internal Medicine Rheumatology; Visit Provider Internal Medicine Rheumatology
DX: M65.842 Other synovitis and tenosynovitis, left hand (principal); M86.9 Osteomyelitis, unspecified; M12.9 Arthropathy, unspecified
CPT/HCPCS: 73220

== ENCOUNTER → 2021-03-19 10:20 | Outpatient (CLI) | payer OTHER, SELFPAY ==
[2021-03-19 12:06] LABS: Add Manual Diff / Slide Review NO; Basophils Absolute Auto 0 /uL (0-100); Basophils Percent Auto 0.9 % (0-2); Eosinophils Absolute Auto 200 /uL (0-450); Eosinophils Percent Auto 3.7 % (2-4); Hematocrit 36.6 % (36-46); Hemoglobin 12.3 g/dL (12.0-16.0); Lymphocytes Absolute Auto 1500 /uL (1100-4500); Lymphocytes Percent Auto 32.1 % (25-40); Mean Corpuscular HGB Conc 33.5 % (30-36); Mean Corpuscular Hemoglobin 30.3 PG (26-34); Mean Corpuscular Volume 90.2 fL (80-100); Monocytes Absolute Auto 400 /uL (0-900); Monocytes Percent Auto 9.3 % (3-14); Neutrophils Absolute Auto 2500 /uL (1500-7000); Platelet Count 225 X10^3/uL (150-400); Red Blood Cell Count 4.06 X10^6/uL (4.0-5.2); Red Cell Distribution Width 14.8 % (11.6-14.8); White Blood Cell Count 4.6 X10^3/uL (4.5-11.0)
[2021-03-19 12:19] LABS: Erythrocyte Sedimentation Rate 6 MM/HR (0-20)
[2021-03-19 12:33] LABS: Alanine Aminotransferase 18 IU/L (<35); Albumin 4.4 g/dL (3.5-5.0); Albumin Globulin Ratio 1.6 (1.0-2.8); Alkaline Phosphatase 57 U/L (38-126); Aspartate Aminotransferase 28 IU/L (14-36); BUN Creatinine Ratio 27.4 (6-22); Bilirubin Total 0.4 mg/dL (0.2-1.3); Blood Urea Nitrogen 20 mg/dL (7-17); C-Reactive Protein Quant < 0.5 mg/dL (<1.0); Calcium 10.1 mg/dL (8.4-10.2); Carbon Dioxide 31 mmol/L (22-32); Chloride 102 mmol/L (98-107); Estimated Glomerular Filt Rate > 60.0 mL/min (>60); Globulin 2.7 g/dL (1.7-4.1); HEMOLYSIS < 15 (0-50); Potassium 4.6 mmol/L (3.4-5.1); Sodium 140 mmol/L (137-145); Total Protein 7.1 g/dL (6.3-8.2); Uric Acid 3.5 mg/dL (2.5-6.2)
[2021-03-19 13:11] LABS: Glucose 45 mg/dL (80-110)
[2021-03-22 00:04] LABS: CCP Antibodies IgG/IgA 22 units (0-19)
== END ==
PROVIDERS: PCP Physician Assistant; Referring Provider Internal Medicine Rheumatology; Visit Provider Internal Medicine Rheumatology
DX: M19.90 Unspecified osteoarthritis, unspecified site (principal)
CPT/HCPCS: 36415; 80053; 83520; 84550; 85025; 85651; 86140; 86200; 86430

== ENCOUNTER → 2021-11-19 11:10 | Outpatient (CLI) | payer OTHER, SELFPAY ==
--- NOTE | 2021-11-19 | DI.MG.S_ITS ---
BILATERAL DIGITAL SCREENING MAMMOGRAM 3D/2D WITH CAD: 11/19/2021 CLINICAL: Routine screening. Comparison is made to exams dated: 10/17/2020 mammogram, 08/04/2018 mammogram, and 10/16/2019 mammogram - [facility]. The tissue of both breasts is heterogeneously dense. This may lower the sensitivity of mammography. Current study was also evaluated with a Computer Aided Detection (CAD) system. No significant masses, calcifications, or other findings are seen in either breast. There has been no significant interval change. IMPRESSION: NEGATIVE There is no mammographic evidence of malignancy. A 1 year screening mammogram is recommended. Based on the Tyrer Cuzick model (a risk assessment model) the patient's lifetime risk is 6.6% and her 10 year risk is 5.4%. According to the ACR, ACS, and NCCN guidelines, an annual breast MRI exam along with mammogram is recommended if the patient's lifetime risk is 20% or greater. This exam was interpreted at Station ID: [id number]. NOTE: For mammograms, a report in lay terms will be sent to the patient. Approximately 15% of breast malignancies will not be visualized mammographically. In the management of a palpable breast mass, a negative mammogram must not discourage biopsy of a clinically suspicious lesion. Electronically Signed By: Abe Pink M.D., jr/ling:11/19/2021 15:11:02 letter sent: Normal Exam ACR BI-RADS Category 1: Negative 3341F
== END ==
PROVIDERS: PCP Physician Assistant; Referring Provider Physician Assistant; Visit Provider Physician Assistant
DX: Z12.31 Encounter for screening mammogram for malignant neoplasm of breast (principal)
CPT/HCPCS: 77063; 77067

== ENCOUNTER → 2021-11-29 09:23 | Outpatient (CLI) | payer OTHER, SELFPAY ==
[2021-11-29 12:17] LABS: Cholesterol 217 mg/dL (140-199); HDL Cholesterol 73 mg/dL (40-60); LDL Cholesterol Calculated 133 mg/dL (<100); Triglycerides 53 mg/dL (35-150)
[2021-12-01 00:12] LABS: HCV AB 0.2 s/co ratio (0.0-0.9)
== END ==
PROVIDERS: PCP Physician Assistant; Referring Provider Physician Assistant; Visit Provider Physician Assistant
DX: Z11.59 Encounter for screening for other viral diseases (principal); Z13.220 Encounter for screening for lipoid disorders
CPT/HCPCS: 36415; 80061; 86803

== ENCOUNTER → 2023-01-07 14:24 | Outpatient (CLI) | payer OTHER, SELFPAY ==
--- NOTE | 2023-01-07 | DI.MG.S_ITS ---
BILATERAL DIGITAL SCREENING MAMMOGRAM 3D/2D WITH CAD: 01/07/2023 CLINICAL: Routine screening. Comparison is made to exams dated: 11/19/2021 mammogram, 10/17/2020 mammogram, 10/16/2019 mammogram, and 08/04/2018 mammogram - [facility]. Both breasts are heterogeneously dense, which may obscure small masses (category c / 51-75% glandular tissue). Current study was also evaluated with a Computer Aided Detection (CAD) system. No significant masses, calcifications, or other findings are seen in either breast. There has been no significant interval change. IMPRESSION: NEGATIVE There is no mammographic evidence of malignancy. A 1 year screening mammogram is recommended. Based on the Tyrer Cuzick model (a risk assessment model) the patient's lifetime risk is 6.2% and her 10 year risk is 5.6%. According to the ACR, ACS, and NCCN guidelines, an annual breast MRI exam along with mammogram is recommended if the patient's lifetime risk is 20% or greater. This exam was interpreted at Station ID: [id number]. NOTE: For mammograms, a report in lay terms will be sent to the patient. Approximately 15% of breast malignancies will not be visualized mammographically. In the management of a palpable breast mass, a negative mammogram must not discourage biopsy of a clinically suspicious lesion. Electronically Signed By: Jack mireles/ling:01/07/2023 16:13:26 letter sent: Normal Exam ACR BI-RADS Category 1: Negative 3341F
== END ==
PROVIDERS: PCP Physician Assistant; Referring Provider Physician Assistant; Visit Provider Physician Assistant
DX: Z12.31 Encounter for screening mammogram for malignant neoplasm of breast (principal)
CPT/HCPCS: 77063; 77067

== ENCOUNTER → 2024-01-20 15:00 | Outpatient (CLI) | payer MEDICARE, SELFPAY ==
--- NOTE | 2024-01-20 15:01 | DI.MG.S_ITS ---
BILATERAL DIGITAL SCREENING MAMMOGRAM 3D/2D WITH CAD: 01/20/2024 CLINICAL: Routine screening. Comparison is made to exams dated: 01/07/2023 mammogram, 11/19/2021 mammogram, 10/17/2020 mammogram, and 10/16/2019 mammogram - [facility]. The breasts are heterogeneously dense, which may obscure small masses (category c / 51-75% glandular tissue). Current study was also evaluated with a Computer Aided Detection (CAD) system. No significant masses, calcifications, or other findings are seen in either breast. There has been no significant interval change. IMPRESSION: NEGATIVE There is no mammographic evidence of malignancy. A 1 year screening mammogram is recommended. Based on the Tyrer Cuzick model (a risk assessment model) the patient's lifetime risk is 5.7% and her 10 year risk is 5.7%. According to the ACR, ACS, and NCCN guidelines, an annual breast MRI exam along with mammogram is recommended if the patient's lifetime risk is 20% or greater. This exam was interpreted at Station ID: [id number]. NOTE: For mammograms, a report in lay terms will be sent to the patient. Approximately 15% of breast malignancies will not be visualized mammographically. In the management of a palpable breast mass, a negative mammogram must not discourage biopsy of a clinically suspicious lesion. Electronically Signed By: Jack mireles/ling:01/21/2024 13:01:17 letter sent: Normal Exam ACR BI-RADS Category 1: Negative
== END ==
LOC: MAMMO 15:01
PROVIDERS: PCP Physician Assistant; Referring Provider Physician Assistant; Visit Provider Physician Assistant
DX: Z12.31 Encounter for screening mammogram for malignant neoplasm of breast (principal); R92.333 Mammographic heterogeneous density, bilateral breasts
CPT/HCPCS: 77063; 77067

== ENCOUNTER → 2025-03-12 | Outpatient (CLI) | payer MEDICARE, SELFPAY ==
--- NOTE | 2025-03-12 15:09 | DI.MG.S_ITS ---
MM screening mammo BI: 03/12/2025. BI-RADS: 1 CLINICAL: 75-year old female for bilateral screening mammogram. Tyrer-Cuzick lifetime risk of 2.6%. No personal or first-degree family history of breast cancer. PRIOR EXAMS 01/20/2024, 01/07/2023, 11/19/2021, 10/17/2020, MAMMOGRAPHY TECHNIQUE: 2D and 3D (tomosynthesis) digital mammographic views obtained, with additional images as needed for full coverage. Current study was also evaluated with a Computer Aided Detection (CAD) system. DENSITY C. The breasts are heterogeneously dense, which may obscure small masses. MAMMOGRAPHY FINDINGS Bilateral: No suspicious mass, asymmetry, microcalcification, or other abnormality seen. No significant change from comparison. IMPRESSION: * No evidence of malignancy. RECOMMENDATIONS Bilateral * Annual screening mammography. OVERALL ASSESSMENT CATEGORY BI-RADS-1: Negative. The [employer] recommends annual screening mammography beginning at age 40 for women with average risk of breast cancer. ELECTRONICALLY SIGNED: Whitney Zaman M.D. on 03/13/2025 at 09:13:31 AM PT Interpreting Station ID: [id number]
== END ==
LOC: MAMMO 15:08
PROVIDERS: PCP Physician Assistant; Referring Provider Physician Assistant; Visit Provider Physician Assistant
DX: Z12.31 Encounter for screening mammogram for malignant neoplasm of breast (principal); R92.333 Mammographic heterogeneous density, bilateral breasts
CPT/HCPCS: 77063; 77067